=== PATIENT | male | born 1995 | race Caucasian/White ===

== ENCOUNTER 2018-04-17 14:58 | Emergency (ER) | payer OTHER ==
[~2018-04-17] VITALS: Ht 176.5 cm; Wt 68.0 kg
--- NOTE | 2018-04-17 15:26 | ED Integumentary General ---
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 dog jumped up et bit pt under chin. several superficial lacs noted. 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 He had his dog spray ready but he didn't use it because the little girls holding on the collar and he did not spray her. He put his back between the dog and himself but the dog jumped up over the back and bit him on the chin. The dog belongs to a neighbor that the girls were just out walking all their out of town. He had a collar with tags on him. His boss already contacted animal control and they are working the dog up. 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 His bleeding is Triston stopped. He does not need anything for pain. He is having no nausea fevers or chills. Allergies and Home Medications Allergies Coded Allergies: No Known Drug Allergies (Unverified , 04/17/18) Home Medications No Active Prescriptions or Reported Meds Patient Home Medication List Home Medication List Reviewed: Yes Constitutional: No chills, No diaphoresis, No fever EENTM: No ear discharge, No ear pain Respiratory: No cough, No short of breath Cardiovascular: No chest pain, No edema Gastrointestinal: No abdominal pain, No constipation, No nausea, No vomiting Genitourinary: No discharge, No dysuria Past Xordakb-Erewev-Ycccel Hx Patient Social History Alcohol Use: Denies Use Recreational Drug Use: No Smoking Status: Never a Smoker 2nd Hand Smoke Exposure: No Recent Foreign Travel: No Contact w/Someone Who Travel: No Recent Infectious Disease Expo: No Recent Hopitalizations: No Physical Abuse: No Sexual Abuse: No Mistreated: No Fear: No Immunizations Up To Date Tetanus Booster (TDap): Less than 5yrs Seasonal Allergies Seasonal Allergies: No Past Medical History Surgeries: Yes (titanium bones in left ear) Ear Surgery Respiratory: No Nursing Suicide Risk Score: 0 Physical Exam Vital Signs Vital Signs - First Documented 04/17/18 15:05 Temp 99.0 Pulse 81 Resp 16 B/P (MAP) 135/91 (106) Pulse Ox 99 O2 Delivery Room Air Capillary Refill : Less Than 3 Seconds General Appearance: WD/WN, no apparent distress HEENT: PERRL/EOMI, normal ENT inspection, TMs normal, pharynx normal, other ( superficial lacerations on the chin and mandible insistent with dog bite. Mild erythema and edema. Hemostatic.) Neck: non-tender, full range of motion, normal inspection Cardiovascular: normal peripheral pulses, regular rate, rhythm Respiratory: no respiratory distress, no accessory muscle use Extremities: normal inspection, normal capillary refill Neurologic/Psychiatric: alert, normal mood/affect, oriented x 3 Progress/Results/Core Measures Results/Orders Vital Signs/I&O 04/17/18 15:05 Temp 99.0 Pulse 81 Resp 16 B/P (MAP) 135/91 (106) Pulse Ox 99 O2 Delivery Room Air Blood Pressure Mean: 106 Progress Progress Note : Time: 15:24 Progress Note Clean the wound thoroughly with chlorhexidine soap water and wound was still hemostatic sort and apply some triple anabolic ointment. A dressing will probably not hold. Given him wound care instructions and will have him follow- up with a primary care doctor as necessary. Even though the wound is on or near his face we will cover him with 3 days of Bactrim DS. Departure Impression Primary Impression: Dog bite Qualified Codes: W54.0XXA - Bitten by dog, initial encounter Disposition: 01 HOME, SELF-CARE Condition: Stable Departure-Patient Inst. Decision time for Depature: 15:25 Referrals: NO,LOCAL PHYSICIAN (PCP/Family) Primary Care Physician Patient Instructions: Animal Bites (DC) Add. Discharge Instructions: Keep the wound clean with regular soap and water at least once a day. Dress it with a thin layer of Vaseline or triple antibiotic ointment. Take the Bactrim one tablet twice a day to completion. If he started to have fevers chills nausea vomiting or worsening swelling return to your doctor, urgent care or the ER. All discharge instructions reviewed with patient and/or family. Voiced understanding. Scripts Sulfamethoxazole/Trimethoprim (Bactrim Ds Tablet) 1 Each Tablet 1 EACH PO BID for 3 Days, #6 TAB 0 Refills Prov: LUDWIN BRYSON 04/17/18 Work/School Note: Work Release Form Date Seen in the Emergency Department: Apr 17, 2018 Return to Work: Apr 17, 2018 Restrictions: No Restrictions LUDWIN BRYSON Apr 17, 2018 15:25
[2018-04-17] MEDS ORDERED: SULF1TAB35 PO (15:31)
[2018-04-17 15:59] VITALS: BP 135/84
== END 2018-04-17 15:58 | disposition home or self-care (01) ==
LOC: EDUNIT# 14:58 → ER 14:59
DX: S01.85XA Open bite of other part of head, initial encounter (principal); W54.0XXA Bitten by dog, initial encounter